=== PATIENT | female | born 1970 | race American Indian/Alaskan Native ===

== ENCOUNTER 2021-09-02 08:03 | Day surgery (SDC) | payer BC ==
[2021-08-28 13:51] LABS: Hematocrit 42.3 % (30.3-42.9); Hemoglobin 13.5 gm/dl (10.1-14.3); Mean Corpuscular HGB Conc 32 % (30-34); Mean Corpuscular Volume 97 fl (79-97); Platelet Count 335 K/mm3 (140-440); Red Blood Count 4.36 M/mm3 (3.65-5.03); Red Cell Distribution Width 14.4 % (13.2-15.2)
[2021-09-02] MEDS ORDERED: LACTATED RINGERS 1,000 ML ONE (09:01)
--- NOTE | 2021-09-02 09:12 | Anesthesia Day of Surgery ---
Anesthesia Day of Surgery - Day of Surgery Patient Examined: Yes Patient H&P Reviewed: Yes Patient is NPO: Yes
[2021-09-02] MEDS ORDERED: HYDROmorphone 1 MG/1 ML INJ IV PRN ×2 (09:13)
[2021-09-02] MEDS ORDERED: ONDANSETRON 4 MG/2 ML INJ IV PRN (09:13)
--- NOTE | 2021-09-02 09:13 | Anesthesia Consultation ---
Anesthesia Consult and Med Hx Date of service: 09/02/21 - Airway Anesthetic Teeth Evaluation: Good ROM Head & Neck: Adequate Mental/Hyoid Distance: Adequate Mallampati Class: Class I Intubation Access Assessment: Good - Pre-Operative Health Status ASA Pre-Surgery Classification: ASA2 Proposed Anesthetic Plan: General - Pulmonary Hx Smoking: Yes Hx Sleep Apnea: No - Central Nervous System Hx Back Pain: Yes (Neck pain) Hx Psychiatric Problems: Yes (Depression) - Gastrointestinal Hx Gastroesophageal Reflux Disease: No - Hematic Hx Anemia: Yes Hx Sickle Cell Disease: No - Other Systems Hx Alcohol Use: Yes (Occas) Hx Substance Use: Yes (Marijuana occas) Hx Cancer: No Hx Obesity: No
[2021-09-02] MEDS ORDERED: FERRIC SUBSULFATE TOPICAL SOLN 8 ML TP ONE (09:40)
[2021-09-02] MEDS ORDERED: SILVER NITRATE APPLICATOR 1 EA TP ONE (09:41)
[2021-09-02] MEDS ORDERED: POTASSIUM IODIDE/IODINE (LUGOLS) 30 ML TP ONE ×2 (09:41→10:28)
[2021-09-02] MEDS ORDERED: ePHEDrine SULFATE 50 MG/1 ML INJ ONE (09:56)
[2021-09-02] MEDS ORDERED: GLYCOPYRROLATE 0.4 MG/2 ML INJ ONE (09:59)
[2021-09-02] MEDS ORDERED: ONDANSETRON 4 MG/2 ML INJ ONE (09:59)
[2021-09-02] MEDS ORDERED: dexAMETHasone 20 MG/5 ML VIAL ONE (09:59)
[2021-09-02] MEDS ORDERED: LIDOCAINE MPF (2%) 20 MG/1 ML VIAL 5 ML ONE (09:59)
[2021-09-02] MEDS ORDERED: fentaNYL 100 MCG/2 ML INJ ONE ×2 (10:00→10:28)
[2021-09-02] MEDS ORDERED: LACTATED RINGERS 1,000 ML IV SCH (10:00)
[2021-09-02] MEDS ORDERED: propofoL 200 MG/20 ML VIAL IV ONE (10:00)
[2021-09-02] MEDS ORDERED: SODIUM CHLORIDE 0.9% IRR 1,500 ML BOTTLE IR ONE (10:29)
--- NOTE | 2021-09-02 10:45 | Operative Report ---
Operative Report Operative Report: Preoperative diagnosis: 51-year-old with persistent low-grade dysplasia, FRANCISCO JAVIER on most recent pap Postoperative diagnosis: Same Procedure: Exam under anesthesia ,LEEP, uterine curettage with ECC Surgeon: Dr. Liana Wang Anesthesia: GETHao Complications: None IV fluids: 1 L crystalloid Urine output: 30 cc clear Estimated blood loss: Less than 10 cc Drains: None Findings: Exam under anesthesia revealed smooth pelvic parametria with no nodularity cobblestoning or masses. The uterus was midline and no adnexal masses were palpable. Rectovaginal septum is smooth. Rectal exam revealed no masses or gross heme. Speculum exam revealed pink vaginal mucosa with loss of rugae, cervix midline, no cervical or vaginal masses appreciated. Procedure: Patient was seen in preop holding area and counseled about risks benefits and possible complications of the procedure. All alternatives were reviewed. Plan intraoperative and postoperative course discussed in detail. Pictures were used for visualization and education purposes. All questions and concerns were reviewed and then informed consent was obtained. Patient was then taken to the operating room where she is placed in the dorsal supine position. She received excellent general endotracheal anesthesia. A timeout was verified exam under anesthesia and speculum exam revealed the above. 30 cc clear urine was obtained with a red rubber catheter. A speculum was placed in the vaginal vault the cervix identified. Lugol's solution was applied to clearly identified dysplasia. Sharp endometrial curettage was performed, all endometrial tissue sent to pathology. Sharp ECC was performed, all tissue sent to pathology. A loop electrosurgical excision procedure was then done in the usual fashion. Electrocautery settings at 40/40. An adequate cervical cone biopsy was obtained and sent to pathology. A rollerball was used for a cautery and hemostasis. Excellent hemostasis at the completion of the procedure. The speculum was removed from the vaginal vault. Patient's daughter was notified of her stable condition and intraoperative co urse at the completion of the procedure. She was extubated and taken to PACU in stable condition. At the patient's request her family member was not updated on her intraoperative course or findings. All sponge needle instrument counts were correct x2. She will follow-up in the outpatient setting. Dr Liana Wang
[2021-09-02 12:09] VITALS: BP 106/59
--- NOTE | 2021-09-02 17:31 | Post Anesthesia Evaluation ---
- Post Anesthesia Evaluation Patient Participated: Yes Airway Patent: Yes Stable Respiratory Function: Yes Nausea/Vomiting: No Temp > 96.8F: Yes Pain Manageable: Yes Adequeate Hydration: Yes Anesthesia Complications: No Block Receding Appropriately: Not Applicable Patient on Ventilator: No
== END 2021-09-02 11:45 | disposition home or self-care (01) ==
LOC: OR 08:03
PROVIDERS: ATTEND Obstetrics & Gynecology
DX: D06.1 Carcinoma in situ of exocervix (principal); Z20.822 Contact with and (suspected) exposure to COVID-19; F32.9 Major depressive disorder, single episode, unspecified; F17.210 Nicotine dependence, cigarettes, uncomplicated; Z79.899 Other long term (current) drug therapy; Z98.890 Other specified postprocedural states
CPT/HCPCS: 36415; 57522; 84703; 85027; 88305; 88307; J1100; J1815; J2405; J2704; J3010; J3490; J7120; U0003